=== PATIENT | male | born 1930 | race Caucasian/White ===

== ENCOUNTER → 2021-08-28 | Outpatient (CLI) | payer MEDICARE, BC ==
[2021-08-28 12:54] LABS: BASO # 0.1 x10^3/uL (0.0-0.2); BASO % 1 % (0-3); EOS # 0.1 x10^3/uL (0.0-0.7); EOS % 2 % (0-3); HEMATOCRIT 41.8 % (39.0-53.0); HEMOGLOBIN 14.1 g/dL (13.0-17.5); LYMPH # 1.8 x10^3/uL (1.0-4.8); LYMPH % 25 % (24-48); MEAN CORPUSCULAR HEMOGLOBIN 30 pg (25-35); MEAN CORPUSCULAR HGB CONC 34 g/dL (31-37); MEAN CORPUSCULAR VOLUME 90 fL (79-100); MONO # 0.8 x10^3/uL (0.0-1.1); MONO % 11 % (0-9); NEUT # 4.6 x10^3uL (1.8-7.7); NEUT % 62 % (31-73); PLATELET COUNT 167 x10^3/uL (140-400); RED BLOOD COUNT 4.65 x10^6/uL (4.30-5.70); RED CELL DISTRIBUTION WIDTH 13.7 % (11.5-14.5); WHITE BLOOD COUNT 7.3 x10^3/uL (4.0-11.0)
[2021-08-28 13:02] LABS: ALBUMIN 3.9 g/dL (3.4-5.0); ALBUMIN/GLOBULIN RATIO 1.1 (1.0-1.7); CALCIUM 8.8 mg/dL (8.5-10.1); CREATININE 1.6 mg/dL (0.7-1.3); GFR 40.9; MAGNESIUM 2.4 mg/dL (1.8-2.4); POTASSIUM 4.9 mmol/L (3.5-5.1); TOTAL BILIRUBIN 0.5 mg/dL (0.2-1.0); TOTAL PROTEIN 7.6 g/dL (6.4-8.2)
--- NOTE | 2021-08-28 13:29 | RAD ---
EXAM: XR CHEST 2V 08/28/2021 12:29 PM CLINICAL INDICATION: Chest tightness for 2 days COMPARISON: None TECHNIQUE: PA and lateral views of the chest FINDINGS: The right hemidiaphragm is mildly elevated. 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 The hea rt is normal in size. Calcifications are in the thoracic aorta. Lungs are adequately expanded. There are bilateral calcified granulomas. No consolidation, pleural effusion or pneumothorax. 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 IMPRESSION: No acute cardiopulmonary abnormality. Electronically signed by: Virginie Diamond MD (08/28/2021 1:27 PM) LIENNICK
[2021-08-29 12:23] LABS: CHOLESTEROL/HDL RATIO 2.6; FREE T4 1.34 ng/dL (0.76-1.46); THYROID STIM HORMONE (TSH) 2.206 uIU/mL (0.358-3.740)
== END ==
LOC: RAD 12:17
PROVIDERS: ATTEND Internal Medicine Cardiovascular Disease
DX: J84.10 Pulmonary fibrosis, unspecified (principal); E78.2 Mixed hyperlipidemia; M51.34 Other intervertebral disc degeneration, thoracic region; Z79.899 Other long term (current) drug therapy
CPT/HCPCS: 36415; 71046; 80053; 80061; 83735; 84439; 84443; 85025